=== PATIENT | male | born 1995 | race African-American/Black ===

== ENCOUNTER 2016-08-01 11:53 | Emergency (ER) | payer SELFPAY ==
[~2016-08-01] VITALS: Ht 157.5 cm; Wt 61.4 kg
[2016-08-01 11:57] VITALS: BP 126/61; PULSE 108; RESP 16; TEMP 97.6; O2SAT 95
[2016-08-01 12:14] VITALS: BP 132/81; PULSE 103; RESP 20; O2SAT 95
[2016-08-01] MEDS ORDERED: ALBUTEROL INH (12:18)
--- NOTE | 2016-08-01 12:22 | PD ---
HPI Chief Complaint: Cold / Flu Symptoms Time Seen by Provider: 12:19 Travel History International Travel<30 days: No Contact w/Intl Traveler<30days: No Traveled to known affect area: No History of Present Illness HPI 20-year-old male presents to the emergency department for evaluation of flulike symptoms for 2 days. Patient reports fever, diarrhea, vomiting. He states he was coughing, but this is resolving. Reports decreased appetite. Patient states that his fever has been running anywhere from 98-103. He states the last night he had a fever 100. He took Tylenol. He is currently afebrile. He reports 3-4 episodes of diarrhea today and 2 episodes of vomiting today. He denies any chest pain or shortness of breath. No abdominal pain. He does report a history of asthma use albuterol inhaler as needed. Patient does drink alcohol and smokes marijuana. He denies any tobacco use. PFSH Past Medical History Asthma: Yes Influenza Vaccination: Yes Social History Alcohol Use: Yes Tobacco Use: No Substance Use: Yes (MARIJUANA) Allergies-Medications (Allergen,Severity, Reaction): Coded Allergies: Dust (Verified Allergy, Unknown, 08/01/16) Wasp (Verified Allergy, Unknown, 08/01/16) Reported Meds & Prescriptions Reported Meds & Active Scripts Active Tamiflu (Oseltamivir Phosphate) 75 Mg Cap 75 Mg PO BID 5 Days Imodium A-D (Loperamide HCl) 2 Mg Cap 2 Mg PO Q6H PRN Zofran Odt (Ondansetron Odt) 4 Mg Tab 4 Mg SL Q6HR PRN Reported [Albuterol Inh] Review of Systems Except as stated in HPI: all other systems reviewed are Neg Physical Exam Narrative GENERAL: Well-nourished, well-developed male patient, ambulatory. Afebrile. SKIN: Focused skin assessment warm/dry. HEAD: Normocephalic. Atraumatic. ENT: Mucosa pink and moist. No erythema or exudates. No uvular edema. No uvular , palatal, or tonsillar deviation. Airway patent. Nasal turbinates appear normal without nasal blood, purulent drainage or septal hematoma. Bilateral tympanic membranes are clear without erythema or perforation. EYES: No scleral icterus. No injection or drainage. NECK: Supple, trachea midline. No JVD or lymphadenopathy. CARDIOVASCULAR: Regular rate and rhythm without murmurs, gallops, or rubs. RESPIRATORY: Breath sounds equal bilaterally. No accessory muscle use. Lungs sounds are clear to auscultation. GASTROINTESTINAL: Abdomen soft, non-tender, nondistended. MUSCULOSKELETAL: No cyanosis, or edema. BACK: Nontender without obvious deformity. No CVA tenderness. Data Data Last Documented VS Vital Signs Date Time Temp Pulse Resp B/P Pulse Ox O2 Delivery O2 Flow Rate FiO2 08/01/16 12:14 103 20 132/81 95 Room Air 08/01/16 11:57 97.6 Orders Complete Blood Count With Diff (08/01/16 12:17) Basic Metabolic Panel (Bmp) (08/01/16 12:17) Iv Access Insert/Monitor (08/01/16 12:17) Chest, Single Ap (08/01/16 ) Influenzae A/B Antigen (08/01/16 12:17) Sodium Chlor 0.9% 1000 Ml Inj (Ns 1000 M (08/01/16 12:30) Ondansetron Inj (Zofran Inj) (08/01/16 12:30) Labs Laboratory Tests Test 08/01/16 12:25 White Blood Count 3.6 TH/MM3 Red Blood Count 4.82 MIL/MM3 Hemoglobin 14.2 GM/DL Hematocrit 43.5 % Mean Corpuscular Volume 90.2 FL Mean Corpuscular Hemoglobin 29.5 PG Mean Corpuscular Hemoglobin 32.7 % Concent Red Cell Distribution Width 12.1 % Platelet Count 200 TH/MM3 Mean Platelet Volume 8.3 FL Neutrophils (%) (Auto) 58.1 % Lymphocytes (%) (Auto) 22.5 % Monocytes (%) (Auto) 18.6 % Eosinophils (%) (Auto) 0.2 % Basophils (%) (Auto) 0.6 % Neutrophils # (Auto) 2.1 TH/MM3 Lymphocytes # (Auto) 0.8 TH/MM3 Monocytes # (Auto) 0.7 TH/MM3 Eosinophils # (Auto) 0.0 TH/MM3 Basophils # (Auto) 0.0 TH/MM3 CBC Comment DIFF FINAL Differential Comment Sodium Level 136 MEQ/L Potassium Level 3.9 MEQ/L Chloride Level 100 MEQ/L Carbon Dioxide Level 25.8 MEQ/L Anion Gap 10 MEQ/L Blood Urea Nitrogen 9 MG/DL Creatinine 1.13 MG/DL Estimat Glomerular Filtration 100 ML/MIN Rate Random Glucose 86 MG/DL Calcium Level 9.3 MG/DL MDM Medical Decision Making Medical Screen Exam Complete: Yes Emergency Medical Condition: Yes Medical Record Reviewed: Yes Interpretation(s) Last Impressions Chest X-Ray 08/01/16 0000 Signed Impressions: Service Date/Time: Monday, August 01, 2016 12:33 - CONCLUSION: Normal examination. Boris Carter MD Differential Diagnosis Influenza versus viral syndrome versus electrolyte abnormality versus dehydration Narrative Course 20-year-old male presents to the emergency department for evaluation of possible flu for 2 days. IV access established. CBC, BMP, and influenza swab are ordered and pending. Chest x-ray is ordered and pending. Patient is given normal saline 1 L IV bolus and Zofran 4 mg IV. CBC shows WBC 3.7, monocytes elevated at 18.6. BMP is unremarkable. Influenza is positive for influenza B. Chest x-ray is normal. Patient will be discharged with a prescription for Zofran, Imodium, Tamiflu. He is to follow-up with a primary care physician. He verbalizes agreement and understanding. The patient was discharged in stable condition with instructions, including return instructions and follow up instructions. Diagnosis Primary Impression: Influenza B Referrals: Primary Care Physician call for appointment Patient Instructions: General Instructions, Influenza (ED) Departure Forms: Tests/Procedures, Work Release Enter return to work date: Aug 03, 2016 Additional Instructions: Take Zofran as instructed as needed for nausea/vomiting. Take Imodium as directed as needed for diarrhea. Take Tamiflu as directed. Drink plenty of fluids. Follow-up with your primary care physician. Return to the emergency department for any acute worsening of symptoms. Med/Other Pt SpecificInfo: Prescription(s) given Scripts Oseltamivir (Tamiflu)75 Mg Cap75 Mg PO BID 5 Days Ref 0 Prov:Michelle Pineda 08/01/16 Loperamide (Imodium A-D)2 Mg Cap2 Mg PO Q6H PRN (DIARRHEA) #16 CAP Ref 0 Prov:Michelle Pineda 08/01/16 Ondansetron Odt (Zofran Odt)4 Mg Tab4 Mg SL Q6HR PRN (Nausea/Vomiting) #16 TAB Ref 0 Prov:Michelle Pineda 08/01/16 Disposition: 01 DISCHARGE HOME Condition: Stable Michelle Pineda Aug 01, 2016 12:22
[2016-08-01] MEDS ORDERED: SODIUM CHLOR 0.9% 1000 ML INJ 1,000 ML IV ONE (12:30)
[2016-08-01] MEDS ORDERED: ONDANSETRON HCL 4 MG/2 ML VIAL IV PUSH ONE (12:30)
[2016-08-01 12:43] LABS: AUTOMATED NEUTROPHIL # 2.1 TH/MM3 (1.8-7.7); BASOPHIL % 0.6 % (0.0-2.0); EOSINOPHIL % 0.2 % (0.0-4.0); HEMATOCRIT 43.5 % (39.0-51.0); HEMO FLAGS DIFF FINAL; LYMPH % 22.5 % (9.0-44.0); LYMPHOCYTE # 0.8 TH/MM3 (1.0-4.8); MEAN CELL VOLUME 90.2 FL (80.0-100.0); MEAN CORPUSCULAR HEMOGLOBIN 29.5 PG (27.0-34.0); MEAN CORPUSCULAR HGB CONC 32.7 % (32.0-36.0); MONO % 18.6 % (0.0-8.0); NEUT % 58.1 % (16.0-70.0); PLATELET COUNT 200 TH/MM3 (150-450); RED BLOOD COUNT 4.82 MIL/MM3 (4.50-5.90); RED CELL DISTRIBUTION WIDTH 12.1 % (11.6-17.2); WHITE BLOOD COUNT 3.6 TH/MM3 (4.0-11.0)
[2016-08-01 12:57] LABS: BICARBONATE 25.8 MEQ/L (21.0-32.0); POTASSIUM 3.9 MEQ/L (3.5-5.1)
--- NOTE | 2016-08-01 13:36 | RADRPT ---
EXAM DATE/TIME: 08/01/2016 12:33 [facility] COMPARISON: No previous studies available for comparison. INDICATIONS : Fever and cough MEDICAL HISTORY : None. SURGICAL HISTORY : None. ENCOUNTER: Initial ACUITY: 1 day PAIN SCORE: 4/10 LOCATION: Bilateral chest FINDINGS: A single view of the chest demonstrates the lungs to be symmetrically aerated without evidence of mas s, infiltrate or effusion. The cardiomediastinal contours are unremarkable. Osseous structures are intact. CONCLUSION: Normal examination. Boris Carter MD on August 01, 2016 at 13:35 Board Certified Radiologist. This report was verified electronically.
[2016-08-01] MEDS ORDERED: LOPE7.5C PO (13:44)
[2016-08-01] MEDS ORDERED: ZOFR4TAB3 SL (13:44)
[2016-08-01] MEDS ORDERED: OSEL75 PO (13:44)
== END 2016-08-01 15:35 | disposition home or self-care (01) ==
LOC: EDBD → EDSEX → NEPD 11:53 → NEPB 15:35
DX: J10.1 Influenza due to other identified influenza virus with other respiratory manifestations (principal); R50.9 Fever, unspecified; R19.7 Diarrhea, unspecified; R11.10 Vomiting, unspecified; Z87.09 Personal history of other diseases of the respiratory system
CPT/HCPCS: 71010; 80048; 85025; 87804; 96361; 96374; 99284; J2405; J7030